=== PATIENT | male | born 1945 | race Caucasian/White ===

== ENCOUNTER → 2019-08-27 | Outpatient (CLI) | payer MEDICARE | END | disposition home or self-care (01) | LOC: CFH 09:45 | PROVIDERS: ATTEND Internal Medicine | DX: J92.9 Pleural plaque without asbestos (principal); J84.9 Interstitial pulmonary disease, unspecified; M47.814 Spondylosis without myelopathy or radiculopathy, thoracic region | CPT/HCPCS: 71250 ==

== ENCOUNTER 2019-09-27 14:31 | Outpatient (CLI) | payer MEDICARE ==
[2019-09-27] MEDS ORDERED: PRED5TAB PO (15:57)
[2019-09-27] MEDS ORDERED: ALBU6.7H8 INJ (15:57)
[2019-09-27] MEDS ORDERED: GABA300C PO (15:57)
[2019-09-27] MEDS ORDERED: ATOR20TA37 PO (15:57)
[2019-09-27] MEDS ORDERED: TERA5CAP3 PO (15:57)
[2019-09-27] MEDS ORDERED: METO25TA35 PO (15:57)
[2019-09-27] MEDS ORDERED: ASPI-496 PO (15:57)
[2019-09-27 16:00] LABS: BASOPHILS # (AUTO) 0.07 x10^3/uL (0-0.1); BASOPHILS % (AUTO) 1 % (0-1); EOSINOPHILS # (AUTO) 0.04 x10^3/uL (0-0.4); EOSINOPHILS % (AUTO) 0 % (1-7); LYMPHOCYTES # (AUTO) 0.99 x10^3/uL (1-3.4); LYMPHOCYTES % (AUTO) 9 % (22-44); MD NO; MEAN CORPUSCULAR HEMOGLOBIN 32.7 pg (27.5-34.5); MEAN PLATELET VOLUME 7.8 fL (7.4-10.4); MONOCYTES # (AUTO) 0.51 x10^3/uL (0.2-0.8); MONOCYTES % (AUTO) 5 % (2-9); NEUTROPHILS # (AUTO) 8.92 x10^3/uL (1.8-6.8); NEUTROPHILS % (AUTO) 85 % (42-75); PLATELET COUNT 249 x10^3/uL (130-400); RED BLOOD COUNT 4.31 x10^6/uL (4.38-5.82); RED CELL DISTRIBUTION WIDTH 13.9 % (9.4-14.8)
[2019-09-27 16:02] LABS: ALANINE AMINOTRANSFERASE 32 U/L (12-78); ALBUMIN 3.5 g/dL (3.4-5.0); ANION GAP 3 mmol/L (5-15); CALCIUM 8.4 mg/dL (8.5-10.1); CHLORIDE 110 mmol/L (98-107); CREATININE 1.03 mg/dL (0.7-1.3)
[2019-09-27 16:05] LABS: ALKALINE PHOSPHATASE 42 U/L (45-117); BILIRUBIN,TOTAL 0.3 mg/dL (0.2-1.0); TOTAL PROTEIN 6.8 g/dL (6.4-8.2)
== END 2019-09-27 23:59 | disposition home or self-care (01) ==
LOC: STAR 14:31
PROVIDERS: ATTEND Thoracic Surgery (Cardiothoracic Vascular Surgery)
DX: Z01.818 Encounter for other preprocedural examination (principal); I51.7 Cardiomegaly
CPT/HCPCS: 36415; 80053; 85025; 93005

== ENCOUNTER → 2020-03-27 | Outpatient (CLI) | payer MEDICARE ==
[~2020-03-27] MED LIST: ALBU6.7H8 INJ; ASPI-496 PO; ATOR20TA37 PO; GABA300C PO; METO25TA35 PO; PRED5TAB PO; TERA5CAP3 PO
== END | disposition home or self-care (01) ==
LOC: CVU 10:13
PROVIDERS: ATTEND Internal Medicine
DX: I08.8 Other rheumatic multiple valve diseases (principal); I10 Essential (primary) hypertension; J84.9 Interstitial pulmonary disease, unspecified
CPT/HCPCS: 93306